=== PATIENT | female | born 1980 | race Hispanic/Latino ===

== ENCOUNTER 2017-03-12 10:49 | Emergency (ER) | payer OTHER ==
[2017-03-12 10:49] VITALS: BMI 35.7
[2017-03-12] MEDS ORDERED: Albuterol 0.042% Inhal Sol (1.25 mg/3 mL) UD INH STA (11:12)
[2017-03-12] MEDS ORDERED: Albuterol 0.083% Inhal Sol (2.5 mg/3 mL) UD ONE (11:19)
--- NOTE | 2017-03-12 11:58 | C.PDOC ---
History Of Present Illness 36 y/o female presents to ED with complaints of cough for 2 weeks. Patient states cough is persistent and develops gagging feeling following shortness of breath. Patient also reports watery eyes and scratchy throat with associated chest heaviness. Patient denies fever, chills, nausea, vomiting, headache or any other complaints at this time. Time Seen by Provider: 03/12/17 11:07 Chief Complaint (Nursing): Shortness Of Breath History Per: Patient History/Exam Limitations: no limitations Onset/Duration Of Symptoms: Days Current Symptoms Are (Timing): Still Present Past Medical History Reviewed: Historical Data, Nursing Documentation, Vital Signs Vital Signs: Last Vital Signs Temp 97.3 F L 03/12/17 10:59 Pulse 68 03/12/17 10:59 Resp 20 03/12/17 10:59 BP 112/74 03/12/17 10:59 Pulse Ox 96 03/12/17 12:00 - [facility] APPLICATION OF SPLINT (04/04/02) Family History: States: No Known Family Hx - Social History Hx Alcohol Use: No Hx Substance Use: No Review Of Systems Except As Marked, All Systems Reviewed And Found Negative. Constitutional: Negative for: Fever, Chills Cardiovascular: Negative for: Chest Pain Respiratory: Positive for: Cough, Shortness of Breath Gastrointestinal: Negative for: Nausea, Vomiting Skin: Negative for: Rash Neurological: Negative for: Weakness, Headache Physical Exam - Physical Exam Appears: Non-toxic, No Acute Distress Skin: Normal Color, Warm, Dry, No Rash Head: Atraumatic, Normacephalic Eye(s): bilateral: EOMI, Other (Mild conjuctival injection) Nose: Normal Oral Mucosa: Moist Throat: Normal, No Erythema Chest: Symmetrical Cardiovascular: Rhythm Regular Respiratory: Normal Breath Sounds, No Rales, No Rhonchi, No Wheezing Gastrointestinal/Abdominal: Soft, No Tenderness, No Guarding, No Rebound Neurological/Psych: Oriented x3, Normal Speech ED Course And Treatment O2 Sat by Pulse Oximetry: 96 (RA) Pulse Ox Interpretation: Normal Medical Decision Making Medical Decision Making: Differential : Season allergy vs URI Plan: Prednisone, Claritin Patient with minimal improvement. Plan to d/c with steroids and PMD follow up. Disposition Counseled Patient/Family Regarding: Diagnosis, Need For Followup, Rx Given - Disposition Referrals: [facility] [Outside] Disposition: HOME/ ROUTINE Disposition Time: 12:02 Condition: STABLE Additional Instructions: Follow up with your doctor or the clinic. Return to the Emergency Department with any other concerns. Prescriptions: Loratadine/Pseudoephedrine [Claritin-D 24 Hour Tablet] 1 tab PO DAILY #10 tab.er.24h Prednisone [Deltasone] 60 mg PO DAILY #12 tablet Instructions: Allergic Rhinitis (ED) Forms: [facility] (Sudanese), General Discharge Instructions, Work Excuse - POA Present On Arrival: None - Clinical Impression Clinical Impression: Allergic rhinitis - Scribe Statement The provider has reviewed the documentation as recorded by the Brittanyibminoo Yang All medical record entries made by the Peter were at my direction and personally dictated by me. I have reviewed the chart and agree that the record accurately reflects my personal performance of the history, physical exam, medical decision making, and the department course for this patient. I have also personally directed, reviewed, and agree with the discharge instructions and disposition.
[2017-03-12 12:14] VITALS: BP 116/71; PULSE 71; RESP 18; TEMP 97.9; O2SAT 97
== END 2017-03-12 12:15 | disposition home or self-care (01) ==
LOC: C.ER 10:49
DX: J30.9 Allergic rhinitis, unspecified (principal)

== ENCOUNTER 2017-09-02 11:58 | Emergency (ER) | payer BC, OTHER ==
[2017-09-02 11:59] VITALS: BMI 35.7
[2017-09-02 12:22] VITALS: RESP 16; TEMP 98.3; O2SAT 98
[2017-09-02] MEDS ORDERED: Naproxen 550 mg Tab PO STA (13:44)
[2017-09-02] MEDS ORDERED: Naproxen 550 mg Tab PO ONE (13:49)
--- NOTE | 2017-09-02 14:07 | C.PDOC ---
Time Seen by Provider: 09/02/17 13:18 Chief Complaint (Nursing): Cough, Cold, Congestion History Per: Patient Onset/Duration Of Symptoms: Days (1) Current Symptoms Are (Timing): Still Present Associated Symptoms: Fever, Sore Throat, Cough, Myalgias, Nasal Congestion Severity: Moderate Additional History Per: Prior Records Past Medical History Reviewed: Historical Data, Nursing Documentation, Vital Signs Vital Signs: Last Vital Signs Temp 98.3 F 09/02/17 12:20 Pulse 89 09/02/17 12:20 Resp 16 09/02/17 12:20 BP 135/90 09/02/17 12:20 Pulse Ox 98 09/02/17 12:20 - Medical History PMH: No Chronic Diseases - [facility] APPLICATION OF SPLINT (04/04/02) Family History: States: Unknown Family Hx - Social History Hx Alcohol Use: No Hx Substance Use: No Review Of Systems Except As Marked, All Systems Reviewed And Found Negative. Constitutional: Negative for: Weakness ENT: Positive for: Nose Congestion, Throat Pain. Negative for: Ear Pain Cardiovascular: Negative for: Chest Pain Respiratory: Positive for: Cough. Negative for: Shortness of Breath, Hemoptysis Gastrointestinal: Negative for: Vomiting, Abdominal Pain, Diarrhea Genitourinary: Negative for: Dysuria Musculoskeletal: Negative for: Neck Pain Skin: Negative for: Rash Neurological: Positive for: Headache. Negative for: Weakness, Numbness, Seizures, Altered Mental Status Physical Exam - Physical Exam Appears: Non-toxic, No Acute Distress Skin: Normal Color, Warm, Dry, No Rash Head: Atraumatic, Normacephalic Eye(s): bilateral: Normal Inspection, PERRL, EOMI Oral Mucosa: Moist, No Drooling, No Trismus Throat: Erythema, No Exudate, No Drooling, No Mass Neck: Normal ROM, Supple Lymphatic: No Adenopathy Cardiovascular: Rhythm Regular Respiratory: Normal Breath Sounds, No Accessory Muscle Use Gastrointestinal/Abdominal: Soft, No Tenderness Extremity: Normal ROM Neurological/Psych: Oriented x3, Normal Speech, Normal Motor, Normal Sensation ED Course And Treatment O2 Sat by Pulse Oximetry: 98 Pulse Ox Interpretation: Normal Disposition Counseled Patient/Family Regarding: Studies Performed, Diagnosis, Need For Followup, Rx Given - Disposition Referrals: Lio Crook MD [Medical Doctor] - Disposition: HOME/ ROUTINE Disposition Time: 14:07 Condition: STABLE Additional Instructions: Drink plenty of fluids. Follow up with your doctor. Return to the ER if you develop shortness of breath, worsening of symptoms or if you have any other concerns. Prescriptions: Guaifenesin/Dextromethorphan [Mucinex Dm ER 1,200-60 mg Tab] 1 tab PO BID PRN # 14 tab.er.12h PRN Reason: Cough And Congestion Naproxen [Naprosyn] 1 tab PO BID PRN #20 tab PRN Reason: Pain Oxymetazoline 0.05% [Oxymetazoline HCl 30 Ml] 2 sprays NS BID #1 bottle Instructions: Cold Symptoms (ED) Forms: [facility] [employer] [facility] (Belgian) - Clinical Impression Clinical Impression: Upper respiratory infection
[2017-09-02 14:16] VITALS: BP 111/68; PULSE 78
== END 2017-09-02 14:15 | disposition home or self-care (01) ==
LOC: C.ER 11:58
DX: J06.9 Acute upper respiratory infection, unspecified (principal)